=== PATIENT | female | born 1955 | race Caucasian/White ===

== ENCOUNTER 2018-03-26 19:40 | Emergency (ER) | payer OTHER ==
[~2018-03-26] VITALS: Ht 154.9 cm; Wt 86.2 kg
[~2018-03-26 19:40] MED LIST: ALLEGRA ALLERG180 MG PO; ASPIRIN325 MG PO; CINNAMON500 MG PO; FISH OIL 1,0001 EAC6 PO; LEVOTHYROXINE88 MCG PO; VITAMIN D35000 UNI1 PO; ZESTRIL5 MG PO
[2018-03-26] MEDS ORDERED: PRILOSEC OTC20 MG PO (19:56)
[2018-03-26] MEDS ORDERED: KEFLEX500 MG PO (23:20)
== END 2018-03-27 00:01 | disposition home or self-care (01) ==
LOC: ED 19:40
DX: L03.211 Cellulitis of face (principal); I10 Essential (primary) hypertension; E03.9 Hypothyroidism, unspecified; K21.9 Gastro-esophageal reflux disease without esophagitis; Z87.891 Personal history of nicotine dependence; Z79.899 Other long term (current) drug therapy
CPT/HCPCS: 70487; 80053; 83605; 85025; 96365; 96366; 96375; 99284; J1170; J2405; J3370; J7060; Q9967

== ENCOUNTER 2025-06-04 09:25 | Day surgery (SDC) | payer MEDICARE ==
[~2025-06-04] VITALS: Ht 154.9 cm; Wt 77.2 kg
[~2025-06-04 09:25] MED LIST changes: +CEFAZOLIN SODIUM 2 GM/20 ML SYR IV SCH; +IBLOOD GLUCOSE TEST STRIP 1 EA TEST VI PRN; +KEFLEX500 MG PO; +LACTATED RINGER'S 1,000 ML IV SCH; +LIDOCAINE HCL 1% 5 ML SDV INJ ONE; +MIDAZOLAM HCL 5 MG/5 ML VIAL IV PRN; +PRILOSEC OTC20 MG PO; +fentaNYL citrate 100 MCG/2 ML VIAL IV PRN
[2025-06-04] MEDS ORDERED: ZEPBOUND7.5 MG/0.5 (09:43)
[2025-06-04 09:53] VITALS: BP 136/57
[2025-06-04] MEDS ORDERED: fentaNYL citrate 100 MCG/2 ML VIAL ONE (10:06)
[2025-06-04] MEDS ORDERED: MIDAZOLAM HCL 5 MG/5 ML VIAL ONE (10:06)
[2025-06-04 11:53] VITALS: BP 130/53
--- NOTE | 2025-06-04 11:56 | NUR ---
1150- PT ARRIVES VIA STRETCHER TO DAY SURGERY FROM PACU. PT IS SITTING UP AND TALKING WITH RN AND FAMILY AT BEDSIDE. PT IS BROUGHT OVER FOR MULTIPLE EMESIS IN PACU. LR INFUSING. PT REPORTS PASSING GAS AND 1/10 PAIN. PT HAS WATER AT THE BEDSIDE. PT IS INSTRUCTED TO CALL IF SHE NEEDS ANYTHING. CALL LIGHT IN REACH AND BED IS LOCKED IN THE LOWEST POSITON.
--- NOTE | 2025-06-04 12:19 | NUR ---
1215- INAPSINE GIVEN PER ORDERS, SEE EMAR. PT DENIES NAUSEA AT THIS TIME. DAUGHTER AT BEDSIDE. PULSE OX PUT IN PLACE. PT SATS ARE AT 94%. CALL LIGHT IN REACH. LR INFUSING. PT DENIES NEEDS AT THIS TIME.
[2025-06-04 12:43] VITALS: BP 115/54
--- NOTE | 2025-06-04 12:45 | OR ---
[facility] [address] [place], [place] [address] Signed DATE OF OPERATION: 06/04/2025 SURGEON: Jocelyn Valencia MD PREOPERATIVE DIAGNOSES: 1. Colon screening. 2. History of polyp 2014. POSTOPERATIVE DIAGNOSIS: Small polyp of sigmoid. PROCEDURE: Total colonoscopy to cecum with cold morcellation polypectomy x1. ANESTHESIA: Intravenous sedation fentanyl 150 mcg and Versed 5 mg. INDICATION: This 69-year-old white woman is a patient of JAVON Justin. She previously underwent colonoscopy [address] Jj Bruce and was said to have had one polyp. She has no current symptoms of bleeding, diarrhea or constipation. She does have family history of colon cancer in a single cousin. She is admitted at this time to undergo screening colonoscopy. Understands the risk of bleeding, infection, and perforation. FINDINGS: The prep was good. Complete colonoscopy was undertaken to cecum. There was one small polyp of the sigmoid. DESCRIPTION OF PROCEDURE: The patient was brought to the endoscopy suite and placed in lateral decubitus position, given intravenous sedation to the point of slurred speech and nystagmus. Digital rectal examination was normal. An Olympus video colonoscope was passed in the rectum and manipulated throughout the colon ultimately intubating the cecum. Scope was withdrawn from that point. Examination was normal until the sigmoid where a small polyp was noted. It might be hyperplastic. It was excised with cold morcellation technique. Further withdrawal showed no other abnormality. Retroflexed view was normal. Scope was removed. The patient was taken to the recovery room in good condition. Electronically Signed By: JOCELYN VALENCIA MD 06/04/25 1245 PATIENT NAME: SAIGE SAINI OPERATIVE REPORT DATE OF : 53 REPORT #: [id number] PHYSICIAN: OJCELYN VALENCIA MD PCP: FLAKO GRIFFITH PA-C REPORT IS CONFIDENTIAL AND NOT TO BE RELEASED WITHOUT AUTHORIZATION [facility] [address] [facility] [place] [place] [address] Signed CONCLUSION DIAGNOSIS: Polyps x1. PLAN: Recommend repeat colonoscopy in 10 years, sooner if symptoms should develop. She will return to the ongoing care of JAVON Justin. MD DALI Chaparro/JESSICA /[id number] cc: JAVON Justin Copies: ~ Electronically Signed By: JOCELYN VALENCIA MD 06/04/25 1245 PATIENT NAME: SAIGE SAINI OPERATIVE REPORT DATE OF : 53 REPORT #: [id number] PHYSICIAN: JOCELYN VALENCIA MD PCP: FLAKO GRIFFITH PA-C REPORT IS CONFIDENTIAL AND NOT TO BE RELEASED WITHOUT AUTHORIZATION
--- NOTE | 2025-06-04 12:59 | NUR ---
1243 STATES SHE WANTS OUT OF HERE. DAUGHTER AT BS TO TAKE PT HOME. DENIES N/V OR PAIN. STATES HAS PASSED GAS. REVIEWED DC INSTRUCTIONS AGAIN. STATES SHE UNDERSTANDS AND NO QUESTIONS.
[2025-06-04 13:42] VITALS: BP 133/74
--- NOTE | 2025-06-04 13:52 | NUR ---
06/04/25 1352 Sheets,Lamar 1037 PT ARRIVED TO PACU ON 3L NC AND DENIES CONCERNS. VSS. 1039 O2 REMOVED. 1040 MD AT BEDSIDE. 1100 PT UP TO EDGE OF BEDSIDE, AND PT GETTING DRESSED. DAUGHTER UPDATED. DC INSTRUCTIONS GIVEN. 1115 PT REPORTS NAUSEA AND EMESIS NOTED. 1126 MD UPDATED AND NAUSEA MEDICAITON ORDER RECEIVED AND GIVEN PER EMAR. FLUIDS CONTINUED. 1140 PT REPROTS FEELING BETTER AND PLAN DISUCSSED. 1150 NAUSEA AND EMESIS NOTED. PT RETURNED TO AND MD UPDATED. PT RETURNED TO DS ROOM 8 WITH DAUGHTER AT BEDSIDE. CARE TRANSFERED AT THIS TIME. PT RESTING IN BED WITH NO CONCERNS OR QUESTIONS. 1200 NEW ORDER FOR NAUSEA MEDICATION GIVEN AND DS RN AWARE.
--- NOTE | 2025-06-09 11:53 | PATH ---
[facility] [address] [place], [place] [address] Signed SPECIMEN(S): A SIGMOID POLYP SPECIMEN SOURCE: A. SIGMOID POLYP CLINICAL HISTORY: Screening, polyp X1 FINAL PATHOLOGIC DIAGNOSIS: Sigmoid polyp,: - Hyperplastic colonic mucosa with prominent submucosal smooth muscle consistent with benign submucosal leiomyoma. See comment. COMMENT: Immunhistochemical stain for smooth muscle actin is performed on A1 and is strongly positive in the submucosal neoplasm, supportive of the histologic diagnosis. AMB MICROSCOPIC EXAMINATION: Histologic sections of all submitted blocks are examined by light microscopy. These findings, together with the gross examination, support the pathologic diagnosis. GROSS DESCRIPTION: The specimen, labeled and designated "Caro sigmoid polyp," is received in formalin and consists of one barone soft tissue fragment, 0.2 cm. Entirely submitted in (A1). VB (under the direct supervision of a pathologist) The Gross Description was prepared using a voice recognition system. The report was reviewed for accuracy; however, sound-alike word errors, addition and/or deletions may occur. If there is any question about this report, please contact Client Services. ADDITIONAL NOTES: Immunohistochemical and/or in situ hybridization studies if performed in this case included appropriate positive controls that reacted as expected. This test was developed and its performance characteristics determined by [facility]. It has not been cleared or approved by the U.S. Food and Drug Administration. The FDA has determined that such clearance or approval is not PATIENT NAME: SAIGE SAINI PATHOLOGY DATE OF : 53 REPORT #: [id number] PHYSICIAN: KASSANDRA GIBBS PCP: FLAKO GRIFFITH PA-C REPORT IS CONFIDENTIAL AND NOT TO BE RELEASED WITHOUT AUTHORIZATION [facility] [address] [place] [address] [place], [place] [address] Signed necessary. This test is used for clinical purposes. It should not be regarded as investigational or for research. [facility] is certified under the Clinical Laboratory Improvement Amendments of 1988 (CLIA) as qualified to perform high complexity clinical laboratory testing. PERFORMING LABORATORY: Technical component was performed by [facility], [address] [place] [id number] (CLIA# [id number]). Professional interpretation was performed by [facility] - [address] [id number] Diagnostician: Delmis Eddy MD Pathologist Electronically Signed 06/09/2025 Copies: ~ PATIENT NAME: SAIGE SAINI PATHOLOGY DATE OF : 53 REPORT #: [id number] PHYSICIAN: KASSANDRA GIBBS PCP: FLAKO GRIFFITH PA-C REPORT IS CONFIDENTIAL AND NOT TO BE RELEASED WITHOUT AUTHORIZATION
== END 2025-06-04 12:43 | disposition home or self-care (01) ==
LOC: OPS 09:25 → DS 09:25 → OPS 10:15
PROVIDERS: ATTEND Surgery
PROC: 0DBN8ZZ Excision of Sigmoid Colon, Via Natural or Artificial Opening Endoscopic (ICD-10-PCS; principal; 2025-06-04 11:00)
DX: Z12.11 Encounter for screening for malignant neoplasm of colon (principal); D12.5 Benign neoplasm of sigmoid colon; I10 Essential (primary) hypertension; G47.33 Obstructive sleep apnea (adult) (pediatric); Z86.0100 Personal history of colon polyps, unspecified; Z79.899 Other long term (current) drug therapy; Z90.49 Acquired absence of other specified parts of digestive tract; Z80.0 Family history of malignant neoplasm of digestive organs
CPT/HCPCS: 88305; 88342; G0500; J0690; J1790; J2250; J2405; J3010; J7121